=== PATIENT | female | born 1965 | race Hispanic/Latino ===

== ENCOUNTER 2018-06-09 02:33 | Inpatient (IN) | payer SELFPAY ==
[2018-06-09] MEDS ORDERED: Nitroglycerin 2% Ointment 1 INCH/1 GM Packet ONE (03:05)
[2018-06-09] MEDS ORDERED: Heparin 10,000 UNITS/ 10 ML VIAL SLOW IVP SCH (03:15)
[2018-06-09] MEDS ORDERED: Heparin 25,000 units/D5W 500 ML IV SCH (03:15)
[2018-06-09 03:32] LABS: INR-International Normal Ratio 1.1
[2018-06-09 03:34] LABS: PTT 78.6 SEC (22.9-36.1)
[2018-06-09 03:41] LABS: ALT (SGPT) 23 U/L (8-55); AST (SGOT) 12 U/L (5-34); Albumin 3.7 g/dL (3.5-5.0); Alkaline Phosphatase 135 U/L (40-150); Anion Gap 16 mmol/L (10-20); BUN (Urea Nitrogen) 13 mg/dL (7.0-18.7); Bilirubin, Total 0.5 mg/dL (0.2-1.2); CK (CPK) 77 U/L (29-168); Calc. Creatinine Clearance 0 mL/min (70-130); Calcium 9.2 mg/dL (7.8-10.44); Carbon Dioxide 19 mmol/L (22-29); Chloride 101 mmol/L (98-107); Estimated GFR-MDRD 75; Globulin 3.4 g/dL (2.4-3.5); Glucose 323 mg/dL (70-105); Magnesium 1.6 mg/dL (1.6-2.6); Potassium 3.5 mmol/L (3.5-5.1); Protein, Total 7.1 g/dL (6.0-8.3); Sodium 132 mmol/L (136-145)
[2018-06-09 03:42] LABS: #Basophils 0.1 thou/uL (0.0-0.2); #Eosinphils 0.3 thou/uL (0.0-0.7); #Lymphocytes 3.7 thou/uL (1.20-3.40); #Monocytes 0.4 thou/uL (0.11-0.59); #Neutrophils 6.2 thou/uL (1.40-6.50); %Eosinophils 3.1 % (0.0-10.0); %Lymphocytes 34.5 % (21.0-51.0); %Monocytes 3.7 % (0.0-10.0); %Neutrophils 57.7 % (42.0-75.0); Anisocytosis SLIGHT = 6-15 cells (100X) (0-5/hpf); MDiff Complete? YES; Mean Corpuscular HGB CONC 33.1 g/dL (32.0-36.0); Mean Corpuscular Hemoglobin 23.8 pg (27.0-31.0); Mean Platelet Volume 8.9 fL (7.4-10.4); Microcytosis SLIGHT = 6-15 cells (100X) (0-5/hpf); Platelet Count 362 thou/uL (130-400); Platelet Morphology Comment Appears Adequate; RBC Distribution Width 15.4 % (11.5-14.5); Red Blood Cell (RBC) Count 5.03 mill/uL (4.20-5.40); White Blood Cell (WBC) Count 10.8 thou/uL (4.8-10.8)
[2018-06-09] MEDS ORDERED: Ondansetron ODT 4 MG TAB PO PRN ×2 (04:07→04:08)
[2018-06-09] MEDS ORDERED: Nitroglycerin 50 MG/250 ML BOT 250 ML IVPB SCH (04:15)
[2018-06-09] MEDS ORDERED: Dextrose 50% Abboject 50 ML SYRINGE SLOW IVP PRN (04:27)
[2018-06-09] MEDS ORDERED: Dextrose 5% in Water 1,000 ML IV PRN (04:27)
--- NOTE | 2018-06-09 05:43 | HP ---
PRIMARY CARE DOCTOR: An out of town physician. CODE STATUS: Full code. TIME OF EVALUATION: 3:55 a.m. CHIEF COMPLAINT: Chest pain. HISTORY OF PRESENT ILLNESS: This is a 52-year-old female patient with past medical history of CABG one year and a half ago. The patient has also history of hypertension, came to the hospital after having chest pain. The chest pain started 90 minutes before arrival to the ER. No clear triggers, no alleviating factors. The patient was resting comfortable when the pain started. She reported that it is worsened when she walk and is associating with shortness of breath that is exertional. REVIEW OF SYSTEMS: CONSTITUTIONAL: The patient had no fever, chills, or generalized weakness. RESPIRATORY: No cough or sputum production. The patient has exertional shortness of breath. CARDIOVASCULAR: Chest pain. No palpitation as described in HPI. GASTROINTESTINAL: No nausea, vomiting, diarrhea, or abdominal pain. 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 GENITOURINARY: No burning on urination. EXTREMITIES: No leg swelling. All other systems were reviewed and negative except for the findings mentioned above. PAST MEDICAL HISTORY: Positive for hypertension, diabetes type 2, hyperlipidemia, cholesterol, obesity, and coronary artery disease. PAST SURGICAL HISTORY: x3, quadruple [place] [address] Ku. PSYCH HISTORY: No previous psych history. SOCIAL HISTORY: No drugs, no alcohol, no smoking history. KNOWN ALLERGIES: Phenergan. REPORTED MEDICATIONS: 1. Tylenol. 2. Aspirin. 3. Lipitor. 4. Celexa. 5. Nexium. 6. Ferrous sulfate. 7. Lasix. 8. Gabapentin. 9. Isosorbide mononitrate. 10. Metoprolol. 11. Janumet. 12. Tramadol. PHYSICAL EXAMINATION: VITAL SIGNS: On presentation, blood pressure 135/67 with , respiratory rate was 26, and oxygen saturation was 100 on room air. GENERAL APPEARANCE: The patient is alert, oriented, not in acute distress. HEENT: Eyes, normal conjunctivae. Moist oral mucosa. Anicteric. No JVD. RESPIRATORY: Bilateral air entry. No rales. No wheezing. Symmetric expansion. CARDIOVASCULAR: Normal rate. Regular rhythm. No murmurs. No gallops. No edema. ABDOMEN: Soft, normal bowel sounds. MUSCULOSKELETAL: Baseline range of motion and strength with no tenderness. SKIN: Warm and intact. No pallor. No rash. No redness. EXTREMITIES: Peripheral pulses are present. Capillary refill seems to be intact. NEURO: No evidence of any new focal weakness. Baseline speech. Cranial nerves seems to be intact. PSYCHIATRIC: The patient is in good mood. No anxiety. Oriented. Optimal judgment. DIAGNOSTIC STUDIES: The EKG was reviewed. The patient has normal sinus rhythm with a rate of 78 with left ventricular hypertrophy with repolarization abnormalities, cannot rule out septal infarct, age undetermined. WV 162, QT corrected 433. Chest x-ray was reviewed by myself. Radiology report is pending. The chest has cardiomegaly. No other significant cardiopulmonary findings were seen. we will need to review radiology report. Labs were reviewed. The patient has white count 10.8, hemoglobin 12, MCV 72, platelet count 362. Coagulation; PT 14, INR 7.1, PTT 78.6. Chemistry; sodium 132, potassium 3.5, chloride 101, carbon dioxide was 19, anion gap 16, BUN 13, creatinine 0.8, GFR 75, glucose 323, magnesium 1.6. LFTs were normal. Troponin was negative. ASSESSMENT AND PLAN: The patient will be placed in the hospital for following medical problems: 1. Chest pain, rule out acute coronary syndrome. The patient has a strong history of coronary artery disease, status post coronary artery bypass graft. The case has been discussed with Dr. Brewster by the ER physician. Recommendation to put the patient on heparin drip and also to put the patient on nitroglycerin drip. We will place the patient in ICU for that reason. We will monitor overnight. We will follow up troponins, most likely this is a case of unstable angina. 2. Uncontrolled diabetes. Glucose is 323, we will reconcile home medications, diabetic diet, sliding scale for optimal control. 3. Hyponatremia, sodium 132, this is mild, no need for any further intervention, we will monitor, we will treat accordingly. 4. Uncontrolled hypertension. The patient presented with a systolic blood pressure of 164, we will reconcile home medications, we will adjust treatment as needed. The patient to be on nitroglycerin drip. 5. Hyperlipidemia, low-cholesterol diet is advised, reconcile home medications. 6. Deep venous thromboses prophylaxis. More than 35 minutes was spent in bedside assessment, counseling to family and patient, review and evaluation of records. Job ID: [id number]
[2018-06-09] MEDS ORDERED: Heparin 25,000 units/D5W 500 ML ONE (06:04)
[2018-06-09] MEDS ORDERED: Acetaminophen 325 MG TAB ONE (06:22)
[2018-06-09 06:37] LABS: Troponin I 0.101 ng/mL (< 0.028)
[2018-06-09 07:33] VITALS: BMI 38.7
[2018-06-09] MEDS ORDERED: metFORMIN 500 MG TAB PO SCH (08:00)
[2018-06-09] MEDS ORDERED: Non-Formulary Item 1 EACH (Sitagliptin Phos/Metformin Hcl [Janumet] 1 TABLET) PO SCH (08:00)
--- NOTE | 2018-06-09 08:37 | RAD ---
PORTABLE CHEST: Date: 06/09/18 PROVIDED CLINICAL HISTORY: Chest pain. FINDINGS: Comparison with 10/31/17. Cardiac and mediastinal silhouette is within normal limits. Median sternotomy changes are again seen. No focal consolidation, pleural fluid, or pneumothorax apparent. IMPRESSION: No evidence for an acute cardiopulmonary process. POS: [facility]
[2018-06-09] MEDS: Alogliptin 25 MG TAB PO SCH ×2 (08:49→16:47)
[2018-06-09] MEDS: Metoprolol Tartrate 25 MG TAB PO SCH ×2 (08:50→20:47)
[2018-06-09] MEDS: Citalopram 20 MG TAB PO SCH (08:50)
[2018-06-09] MEDS: Furosemide 40 MG TAB PO SCH (08:50)
[2018-06-09] MEDS ORDERED: Aspirin 81 mg Enteric Coated Tablet PO SCH (09:00)
[2018-06-09] MEDS ORDERED: Non-Formulary Item 1 EACH (Levemir Flexpen [Levemir Flexpen] 20 UNIT) SC SCH (09:00)
[2018-06-09] MEDS ORDERED: Insulin Glargine 20 UNITS in Pre-Filled Syringe 1 EACH SC SCH (09:00)
[2018-06-09 09:53] LABS: Prothrombin Time 13.7 SEC (12.0-14.7)
[2018-06-09] MEDS ORDERED: ISOVUE-370 76%-LOCM 1 ML ONE (10:17)
--- NOTE | 2018-06-09 10:34 | CT ---
CT PULMONARY ANGIGRAM WITH IV CONTRAST AND 3D MIP RECONSTRUCTIONS: Date: 06/09/18 PROVIDED CLINICAL HISTORY: Chest pain and shortness of breath. FINDINGS: Comparison made with the examination dated 01/21/17. There is no evidence for central or segmental pulmonary embolus. There is moderate stenosis at the or igin of the left subclavian artery. The heart, pericardium, and great vessels appear otherwise unrema rkable, with the exception of vascular calcification. The lungs are free of significant opacity. Ther e is no pleural fluid or pneumothorax apparent. The airway appears patent and of normal caliber. The visualized portions of the upper abdomen demonstrate no significant abnormality. The osseous structur es demonstrate no concerning osteoblastic or osteolytic lesions. IMPRESSION: No evidence for central or segmental pulmonary embolus. POS: [facility]
[2018-06-09] MEDS: HumaLOG 300 UNITS/3 ML VIAL SC PRN ×2 (11:12→16:02)
--- NOTE | 2018-06-09 11:16 | CON ---
DATE OF CONSULTATION: 06/09/2018 HISTORY OF PRESENT ILLNESS: Ms. Camacho is a 52-year-old female. She had a coronary artery bypass grafting in 2017. She had chest discomfort last fall and underwent cardiac catheterization at [facility] in [place]. She tells me that all of her grafts were occluded. It is unclear what was recommended. She presented back with chest pain similar to past chest pain. She underwent a CT pulmonary angiogram today that was negative. She is pain free at this time. PAST MEDICAL HISTORY: Remarkable for hypertension, diabetes, lipid disorder, and coronary artery disease. FAMILY HISTORY: Negative for lung disease in early age. Family history is positive for diabetes. SOCIAL HISTORY: She is a nonsmoker and nondrinker. ALLERGIES: SHE REPORTS AN ALLERGY TO PHENERGAN. REVIEW OF SYSTEMS: Ten-point review of systems completed, otherwise negative. PHYSICAL EXAMINATION: GENERAL: Ms. Camacoh is a 52-year-old female. VITAL SIGNS: Blood pressure is 152/80, heart rate is 80, respiratory rate is 18 , and oximetry is 99% on room air. HEAD: Unremarkable. NECK: Unremarkable. LUNGS: Clear. HEART: Regular rhythm. S1 and S2 are normal. ABDOMEN: Soft and nontender. EXTREMITIES: Without clubbing, cyanosis, or edema. LABORATORY DATA: White count is 10.8, hemoglobin 12.0, and platelets 362. Sodium 132, potassium 3.5, chloride 101, bicarb 19, BUN 13, creatinine 0.81, and glucose 323. Troponins 0.1 at 6'o clock this morning. IMPRESSION: Unstable angina with occluded coronary grafts. PLAN: Cardiology input. Should stay in critical care unit for now. We think her heparin drip could be discontinued. She will be anticoagulated for several hours after the heparin has been discontinued. If Cardiology wants to continue with Lovenox, would be reasonable and antiplatelet therapy. I am not sure anything could be done. We filled out a medical records request for her cath report. TIME SPENT: This is a 70-minute consult, with greater than 50% of the time was spent coordinating care on the unit. Job ID: [id number] MTDD
--- NOTE | 2018-06-09 14:23 | PDOC.PN ---
- Subjective Encounter Start Date: 06/09/18 Encounter Start Time: 14:22 Subjective: feels better.no chest pain or SOB -: has been off of eliquis by pcp for years as the DVt was one episode -: no recent travels/immobilizations - Objective Resuscitation Status - Order Detail: 06/09/18 04:08 Resuscitation Status Routine Resuscitation Status: FULL: Full Resuscitation MAR Reviewed: Yes Vital Signs & Weight: Vital Signs (12 hours) Temp Pulse Resp BP Pulse Ox 06/09/18 12:00 98.0 F 100 06/09/18 07:36 100 06/09/18 03:03 97.7 F 79 17 132/80 100 Weight Weight 198 lb 3.129 oz Most Recent Monitor Data Heart Rate from ECG 69 NIBP 122/76 NIBP BP-Mean 91 Respiration from ECG 19 SpO2 100 I&O: 06/08/18 06/09/18 06/10/18 06:59 06:59 06:59 Intake Total 240 Output Total 901 Balance -661 Result Diagrams: 06/09/18 03:08 06/09/18 03:08 Additional Labs: Accuchecks 06/09/18 11:10 POC Glucose 284 H Laboratory Tests 06/09/18 06/09/18 03:08 06:03 Troponin I Less than 0.010 0.101 H Phys Exam - Physical Examination Constitutional: NAD weak looking HEENT: PERRLA, moist MMs, sclera anicteric, TM's clear, oral pharynx no lesions , 2+ tonsils Neck: no nodes, no JVD, supple, full ROM Respiratory: no wheezing, no rales, no rhonchi, clear to auscultation bilateral Cardiovascular: RRR, no significant murmur, no rub Gastrointestinal: soft, non-tender, no distention, positive bowel sounds Musculoskeletal: no edema Neurological: non-focal, normal sensation, moves all 4 limbs Dx/Plan (1) Unstable angina Status: Acute (2) CAD (coronary artery disease) Code(s): I25.10 - ATHSCL HEART DISEASE OF [place] CORONARY ARTERY W/O ANG PCTRS Status: Chronic Comment: s/p CABG, on ASA (3) DM2 (diabetes mellitus, type 2) Status: Chronic Qualifiers: Chronic kidney disease stage: stage 2 (mild) (4) Dyslipidemia Code(s): E78.5 - HYPERLIPIDEMIA, UNSPECIFIED Status: Chronic (5) HTN (hypertension) Code(s): I10 - ESSENTIAL (PRIMARY) HYPERTENSION Status: Chronic - Plan respiratory therapy, DVT proph w/SCDs CTA ordered given h/o PE & SOB w CP on presentation -: no PE -: cont heparin drip.Cardiology consulted -: aldair will need Cath.Hd stable. -: cont medical management * .not on cardene drip. * serial troponins Review of Systems - Review of Systems Constitutional: weakness, malaise. negative: fever, chills, sweats, other ENT: negative: Ear Pain, Ear Discharge, Nose Pain, Nose Discharge, Nose Congestion, Mouth Pain, Mouth Swelling, Throat Pain, Throat Swelling, Other Respiratory: negative: Cough, Dry, Shortness of Breath, Hemoptysis, SOB with Excertion, Pleuritic Pain, Sputum, Wheezing Cardiovascular: negative: chest pain, palpitations, orthopnea, paroxysmal nocturnal dyspnea, edema, light headedness, other Gastrointestinal: negative: Nausea, Vomiting, Abdominal Pain, Diarrhea, Constipation, Melena, Hematochezia, Other Genitourinary: negative: Dysuria, Frequency, Incontinence, Hematuria, Retention , Other Musculoskeletal: negative: Neck Pain, Shoulder Pain, Arm Pain, Back Pain, Hand Pain, Leg Pain, Foot Pain, Other Neurological: negative: Weakness, Numbness, Incoordination, Change in Speech, Confusion, Seizures, Other - Medications/Allergies Allergies/Adverse Reactions: Allergies Allergy/AdvReac Type Severity Reaction Status Date / Time promethazine [From Phenergan] Allergy Verified 01/21/17 03:45 Medications: Current Medications Acetaminophen (Tylenol) 650 mg PO Q4H PRN PRN Reason: Headache/Fever/Mild Pain (1-3) Alogliptin Benzoate (Alogliptin) 12.5 mg PO BID-[facility] Last Admin: 06/09/18 08:49 Dose: 12.5 mg Aspirin (Ecotrin) 81 mg PO DAILY [facility] Last Admin: 06/09/18 08:50 Dose: 81 mg Atorvastatin Calcium (Lipitor) 40 mg PO HS [facility] Citalopram Hydrobromide (Celexa) 20 mg PO DAILY [facility] Last Admin: 06/09/18 08:50 Dose: 20 mg Dextrose/Water (Dextrose 50%) 25 gm SLOW IVP PRN PRN PRN Reason: Hypoglycemia Furosemide (Lasix) 40 mg PO DAILY [facility] Last Admin: 06/09/18 08:50 Dose: 40 mg Gabapentin (Neurontin) 300 mg PO HS [facility] Glucagon (Glucagon) 1 mg IM PRN PRN PRN Reason: Hypoglycemia Nitroglycerin/Dextrose (Nitroglycerin 50 Mg/250 Ml Bot) 250 mls @ 0 mls/hr IVPB INF SAMMIE; Protocol Dextrose/Water (D5w) 1,000 mls @ 0 mls/hr IV .Q0M PRN PRN Reason: Hypoglycemia Insulin Human Lispro (Humalog) 0 units SC .MILD SLIDING SCALE PRN PRN Reason: Mild Correctional Scale Last Admin: 06/09/18 11:12 Dose: 4 unit Metoprolol Tartrate (Lopressor) 12.5 mg PO BID [facility] Last Admin: 06/09/18 08:50 Dose: 12.5 mg Ondansetron HCl (Zofran Odt) 4 mg PO Q4HR PRN PRN Reason: Nausea/Vomiting Ondansetron HCl (Zofran Odt) 4 mg PO Q6H PRN PRN Reason: Nausea/Vomiting Pantoprazole Sodium (Protonix) 40 mg PO BID [facility] Last Admin: 06/09/18 08:50 Dose: 40 mg Sodium Chloride (Flush - Normal Saline) 10 ml IVF Q12HR [facility] Last Admin: 06/09/18 08:51 Dose: 10 ml Sodium Chloride (Flush - Normal Saline) 10 ml IVF PRN PRN PRN Reason: Saline Flush
[2018-06-09] MEDS ORDERED: Temazepam 15 MG CAP PO PRN (19:55)
[2018-06-09] MEDS: Aspirin 81 mg Enteric Coated Tablet PO SCH (20:47)
[2018-06-09] MEDS ORDERED: Gabapentin 300 MG CAP PO SCH (21:00)
[2018-06-09] MEDS ORDERED: Atorvastatin Calcium 40 MG TAB PO SCH (21:00)
[2018-06-10 04:49] LABS: #Basophils 0.1 thou/uL (0.0-0.2); #Eosinphils 0.3 thou/uL (0.0-0.7); #Lymphocytes 2.4 thou/uL (1.20-3.40); #Monocytes 0.3 thou/uL (0.11-0.59); #Neutrophils 8.6 thou/uL (1.40-6.50); %Basophils 0.9 % (0.0-1.0); %Eosinophils 2.5 % (0.0-10.0); %Lymphocytes 20.2 % (21.0-51.0); %Monocytes 2.9 % (0.0-10.0); %Neutrophils 73.5 % (42.0-75.0); Hemoglobin 12.4 g/dL (12.0-16.0); Mean Corpuscular HGB CONC 32.5 g/dL (32.0-36.0); Mean Corpuscular Hemoglobin 23.6 pg (27.0-31.0); Mean Corpuscular Volume 72.6 fL (78.0-98.0); Mean Platelet Volume 8.7 fL (7.4-10.4); Platelet Count 395 thou/uL (130-400); RBC Distribution Width 15.6 % (11.5-14.5); Red Blood Cell (RBC) Count 5.25 mill/uL (4.20-5.40); White Blood Cell (WBC) Count 11.6 thou/uL (4.8-10.8)
[2018-06-10 05:09] LABS: Anion Gap 17 mmol/L (10-20); BUN (Urea Nitrogen) 14 mg/dL (7.0-18.7); Calc. Creatinine Clearance 119 mL/min (70-130); Calcium 9.1 mg/dL (7.8-10.44); Carbon Dioxide 20 mmol/L (22-29); Chloride 101 mmol/L (98-107); Estimated GFR-MDRD 76; Glucose 301 mg/dL (70-105); Potassium 3.7 mmol/L (3.5-5.1); Sodium 134 mmol/L (136-145)
[2018-06-10] MEDS: HumaLOG 300 UNITS/3 ML VIAL SC PRN (05:58)
[2018-06-10] MEDS ORDERED: Dextrose 5% in Water 1,000 ML IV PRN (07:46)
[2018-06-10] MEDS ORDERED: Dextrose 50% Abboject 50 ML SYRINGE SLOW IVP PRN (07:46)
[2018-06-10] MEDS ORDERED: HumaLOG 300 UNITS/3 ML VIAL SC PRN ×2 (07:46)
[2018-06-10] MEDS: Citalopram 20 MG TAB PO SCH (09:45)
[2018-06-10] MEDS: Metoprolol Tartrate 25 MG TAB PO SCH (09:45)
[2018-06-10] MEDS: Aspirin 81 mg Enteric Coated Tablet PO SCH (09:45)
[2018-06-10] MEDS: Furosemide 40 MG TAB PO SCH (09:45)
[2018-06-10] MEDS: Alogliptin 25 MG TAB PO SCH ×2 (09:46→17:17)
[2018-06-10] MEDS: Acetaminophen 325 MG TAB PO PRN ×2 (09:49→17:20)
--- NOTE | 2018-06-10 11:08 | PDOC.PN ---
- Subjective Encounter Start Date: 06/10/18 Encounter Start Time: 11:06 Subjective: feels better. eager to go home -: no more chest pain,no SOB - Objective Resuscitation Status - Order Detail: 06/09/18 04:08 Resuscitation Status Routine Resuscitation Status: FULL: Full Resuscitation MAR Reviewed: Yes Vital Signs & Weight: Vital Signs (12 hours) Temp Pulse Resp BP BP Pulse Ox 06/10/18 07:20 97.9 F 69 16 120/63 99 06/10/18 04:05 98 F 74 18 134/68 98 Weight Weight 195 lb 9.6 oz Most Recent Monitor Data Heart Rate from ECG 77 NIBP 135/81 NIBP BP-Mean 99 Respiration from ECG 14 SpO2 100 I&O: 06/09/18 06/10/18 06/11/18 06:59 06:59 06:59 Intake Total 1080 Output Total 1601 Balance -521 Result Diagrams: 06/10/18 04:35 06/10/18 04:35 Additional Labs: Accuchecks 06/10/18 06/09/18 06/09/18 05:45 20:38 15:57 POC Glucose 352 H 214 H 275 H 06/09/18 11:10 POC Glucose 284 H Laboratory Tests 06/09/18 06/09/18 03:08 06:03 Troponin I Less than 0.010 0.101 H Phys Exam - Physical Examination Constitutional: NAD HEENT: PERRLA, moist MMs, sclera anicteric, oral pharynx no lesions Neck: no nodes, no JVD, supple, full ROM Respiratory: no wheezing, no rales, no rhonchi, clear to auscultation bilateral Cardiovascular: RRR, no significant murmur, no rub Gastrointestinal: soft, non-tender, no distention, positive bowel sounds Musculoskeletal: no edema, pulses present Neurological: non-focal, normal sensation, moves all 4 limbs Psychiatric: normal affect, A&O x 3 Skin: no rash Dx/Plan (1) Unstable angina Status: Acute Comment: improved. Occluded grafts w only RCA graft patent per Cath in 04/07 (2) CAD (coronary artery disease) Code(s): I25.10 - ATHSCL HEART DISEASE OF [place] CORONARY ARTERY W/O ANG PCTRS Status: Chronic Comment: s/p CABG, on ASA (3) DM2 (diabetes mellitus, type 2) Status: Chronic Qualifiers: Chronic kidney disease stage: stage 2 (mild) (4) Dyslipidemia Code(s): E78.5 - HYPERLIPIDEMIA, UNSPECIFIED Status: Chronic (5) HTN (hypertension) Code(s): I10 - ESSENTIAL (PRIMARY) HYPERTENSION Status: Chronic - Plan out of bed/ambulate, DVT proph w/SCDs [facility].started on ranexa.ASA increased -: May DC home later today if cleared by cardiology -: will f/u w own side framer Dr. Juarez as an Outpt -: Hd stable.off of heparin drip * . Review of Systems - Review of Systems Constitutional: negative: fever, chills, sweats, weakness, malaise, other ENT: negative: Ear Pain, Ear Discharge, Nose Pain, Nose Discharge, Nose Congestion, Mouth Pain, Mouth Swelling, Throat Pain, Throat Swelling, Other Respiratory: negative: Cough, Dry, Shortness of Breath, Hemoptysis, SOB with Excertion, Pleuritic Pain, Sputum, Wheezing Cardiovascular: negative: chest pain, palpitations, orthopnea, paroxysmal nocturnal dyspnea, edema, light headedness, other Gastrointestinal: negative: Nausea, Vomiting, Abdominal Pain, Diarrhea, Constipation, Melena, Hematochezia, Other Genitourinary: negative: Dysuria, Frequency, Incontinence, Hematuria, Retention , Other Neurological: negative: Weakness, Numbness, Incoordination, Change in Speech, Confusion, Seizures, Other - Medications/Allergies Allergies/Adverse Reactions: Allergies Allergy/AdvReac Type Severity Reaction Status Date / Time promethazine [From Phenergan] Allergy Verified 01/21/17 03:45 Medications: Current Medications Acetaminophen (Tylenol) 650 mg PO Q4H PRN PRN Reason: Headache/Fever/Mild Pain (1-3) Last Admin: 06/10/18 09:49 Dose: 650 mg Alogliptin Benzoate (Alogliptin) 12.5 mg PO BID-[facility] Last Admin: 06/10/18 09:46 Dose: 12.5 mg Aspirin (Ecotrin) 81 mg PO BID [facility] Last Admin: 06/10/18 09:45 Dose: 81 mg Atorvastatin Calcium (Lipitor) 40 mg PO [facility] Last Admin: 06/09/18 20:47 Dose: 40 mg Citalopram Hydrobromide (Celexa) 20 mg PO DAILY [facility] Last Admin: 06/10/18 09:45 Dose: 20 mg Dextrose/Water (Dextrose 50%) 25 gm SLOW IVP PRN PRN PRN Reason: Hypoglycemia Furosemide (Lasix) 40 mg PO DAILY [facility] Last Admin: 06/10/18 09:45 Dose: 40 mg Gabapentin (Neurontin) 300 mg PO HS [facility] Last Admin: 06/09/18 20:47 Dose: 300 mg Glucagon (Glucagon) 1 mg IM PRN PRN PRN Reason: Hypoglycemia Dextrose/Water (D5w) 1,000 mls @ 0 mls/hr IV .Q0M PRN PRN Reason: Hypoglycemia Insulin Human Lispro (Humalog) 0 units SC .AGGRESSIVE SLIDING PRN PRN Reason: Aggressive Correctional Scale Insulin Human Lispro (Humalog) 0 units SC .BEDTIME SLIDING SC PRN PRN Reason: Bedtime Correctional Scale Metoprolol Tartrate (Lopressor) 12.5 mg PO BID [facility] Last Admin: 06/10/18 09:45 Dose: 12.5 mg Ondansetron HCl (Zofran Odt) 4 mg PO Q4HR PRN PRN Reason: Nausea/Vomiting Ondansetron HCl (Zofran Odt) 4 mg PO Q6H PRN PRN Reason: Nausea/Vomiting Pantoprazole Sodium (Protonix) 40 mg PO BID [facility] Last Admin: 06/10/18 09:45 Dose: 40 mg Ranolazine (Ranexa) 500 mg PO BID [facility] Last Admin: 06/10/18 09:45 Dose: 500 mg Sodium Chloride (Flush - Normal Saline) 10 ml IVF Q12HR [facility] Last Admin: 06/10/18 09:44 Dose: 10 ml Sodium Chloride (Flush - Normal Saline) 10 ml IVF PRN PRN PRN Reason: Saline Flush Temazepam (Restoril) 15 mg PO HSPRN PRN PRN Reason: Insomnia
[2018-06-10] MEDS ORDERED: Clopidogrel Bisulfate 300 MG TAB PO SCH (17:15)
[2018-06-10 17:50] VITALS: BP 116/64; TEMP 98.5
--- NOTE | 2018-06-11 05:32 | DIS ---
DATE OF ADMISSION: 06/09/2018 DATE OF DISCHARGE: 06/10/2018 CONDITION: At the time of discharge, stable and improved. DISCHARGE DIAGNOSES: 1. Unstable angina. 2. History of coronary artery disease, status post coronary artery bypass graft with occluded coronary artery bypass graft except RCA graft. 3. Diabetes mellitus type 2. 4. Dyslipidemia. 5. Hypertension. PRIMARY CARE PHYSICIAN: [facility]. PRIMARY METAL OFF BEARER: Dr. Syed Juarez at [facility]. IN-HOUSE CONSULTATION: 1. Pulmonary Medicine, Dr. Oliveira. 2. Cardiology, Dr. Mondragon. DISCHARGE MEDICATIONS: New medications: 1. Ranexa 500 mg p.o. b.i.d. 2. Sublingual nitroglycerin spray q.5 minutes as needed for chest pain. 3. Plavix 75 mg daily. Resume home medications as follows: 1. Lipitor 40 mg daily. 2. Celexa 20 mg daily. 3. Nexium 40 p.o. b.i.d. 4. Lasix 40 daily. 5. Gabapentin 300 daily. 6. Levemir 20 b.i.d. 7. Metoprolol tartrate 12.5 b.i.d. 8. Zofran p.r.n. 9. Janumet one tablet p.o. b.i.d. 10. Aspirin 81 mg p.o. b.i.d. PROCEDURES DONE IN THE HOSPITAL: CT angio of the thorax which is negative for any evidence of pulmonary embolism. HISTORY OF PRESENTING ILLNESS: Ms. Camacho is a 52-year-old female with known history of coronary artery disease, who recently had undergone a cardiac catheterization at [facility] by Dr. Juarez revealing inoperable graft occlusion. At that time, medical management was advised. She came to the emergency room with complaints of chest pain on exertion and was diagnosed with unstable angina and was admitted for further workup. Her cardiac enzymes upon presentation were unremarkable and they remained in the indeterminate range throughout the hospitalization. HOSPITAL COURSE: She was initially started on heparin drip because of possibility of angina and needing cardiac catheterization. She was admitted to [facility]. She was transitioned quickly out of there and heparin drip was stopped. Cardiology saw the patient and agreed with medical optimization. She was started on Ranexa. She was given a loading dose of Plavix and was started on Plavix as well. She was also given nitroglycerin spray. She remained otherwise asymptomatic and hemodynamically stable throughout the rest of her hospitalization. This morning, she was seen and examined and she has been cleared for discharge by Cardiology to follow up with her own legal researcher, Dr. Syed Juarez, in the outpatient setting. Once again, she has known blockages in the graft which are deemed inoperable. She was seen and examined prior to discharge. Please see hospitalist progress note from today's date for further details, including [id number] interaction. TIME SPENT: Total time spent in the discharge of this patient 32 minutes. Job ID: [id number]
--- NOTE | 2018-06-11 08:34 | CON ---
DATE OF CONSULTATION: HISTORY OF PRESENT ILLNESS: The patient is an unfortunate 52-year-old woman, who presents with recurrent chest discomfort. The patient has a long history of coronary artery disease. She was initially followed by Dr. Uribe. She was found to have severe three-vessel coronary artery disease and underwent coronary bypass graft surgery x3. The patient has had recurrent difficulties with chest discomfort. She has been followed primarily at [facility]. The patient also has been diagnosed with a pulmonary embolus. The patient had underwent a repeat catheterization approximately a month ago. She states that she had several occluded coronary bypass grafts. The patient has been treated with Ranexa. The patient states she has missed several of her cardiac medications. She presented once again to the emergency room with chest discomfort. PAST MEDICAL HISTORY: Significant for; 1. Coronary artery disease. 2. Hypertension. 3. Dyslipidemia. 4. History of pulmonary embolus. PAST SURGICAL HISTORY: SOCIAL HISTORY: Nonsmoker. ALLERGIES: PROMETHAZINE. PHYSICAL EXAMINATION: GENERAL: Obese woman, in no acute distress. VITAL SIGNS: Blood pressure 135/81. NECK: No jugular venous distention. LUNGS: Clear to auscultation. HEART: Regular rate and rhythm. Normal S1 and S2 ABDOMEN: Distended. EXTREMITIES: Showed mild edema. LABORATORY RESULTS: Sodium 132, potassium 3.5, chloride 101, bicarb 19, BUN 13, creatinine 0.8, glucose 323. Troponin 0.01. White blood cell count 10.8, hemoglobin 12.0, hematocrit 36.3, platelets 362. EKG revealed normal sinus rhythm with left ventricular hypertrophy, ST abnormality suggestive of repolarization abnormality. IMPRESSION: 1. Recurrent unstable angina. 2. History of coronary artery bypass surgery. 3. Hypertension. 4. History of pulmonary embolism. 5. Dyslipidemia. 6. Diabetes mellitus. 7. Noncompliance. PLAN: This patient presents with recurrent chest discomfort. Her cardiac enzymes reveal no evidence of myocardial infarction. She had a recent cardiac catheterization. We will obtain records from [facility] from a cardiac standpoint. We will treat the patient medically. I have explained the life threatening consequences of her not being compliant with her medications. We will restart the patient on Ranexa. We will follow this patient with you through her hospitalization. Consult Dr. Oliveira and Dr. Ramirez. Critical care time 30 minutes. Job ID: [id number]
== END 2018-06-10 19:43 | disposition home or self-care (01) | DRG 303 ==
LOC: ERS 02:33 → ERHOLD 03:00 → CCU 07:51 → 2NO 18:50
PROVIDERS: ADMIT Hospitalist; ATTEND Hospitalist
DX: I25.110 Atherosclerotic heart disease of native coronary artery with unstable angina pectoris (principal); T82.897A Other specified complication of cardiac prosthetic devices, implants and grafts, initial encounter; E87.1 Hypo-osmolality and hyponatremia; E11.22 Type 2 diabetes mellitus with diabetic chronic kidney disease; I12.9 Hypertensive chronic kidney disease with stage 1 through stage 4 chronic kidney disease, or unspecified chronic kidney disease; N18.2 Chronic kidney disease, stage 2 (mild); E78.5 Hyperlipidemia, unspecified; E66.9 Obesity, unspecified; Z95.1 Presence of aortocoronary bypass graft; Z86.711 Personal history of pulmonary embolism; Z91.19 Patient's noncompliance with other medical treatment and regimen; Z68.38 Body mass index [BMI] 38.0-38.9, adult
CPT/HCPCS: 36415; 36416; 71045; 71275; 80048; 80053; 82550; 83735; 84484; 85025; 85610; 85730; 93005; J1644

== ENCOUNTER 2018-11-03 03:19 | Observation (INO) | payer SELFPAY ==
[2018-11-03 04:04] LABS: #Basophils 0.1 thou/uL (0.0-0.2); #Eosinphils 0.2 thou/uL (0.0-0.7); #Lymphocytes 2.5 thou/uL (1.20-3.40); #Monocytes 0.4 thou/uL (0.11-0.59); #Neutrophils 8.1 thou/uL (1.40-6.50); %Basophils 1.3 % (0.0-1.0); %Eosinophils 1.9 % (0.0-10.0); %Monocytes 3.8 % (0.0-10.0); ALT (SGPT) 19 U/L (8-55); AST (SGOT) 10 U/L (5-34); Albumin 3.8 g/dL (3.5-5.0); Alkaline Phosphatase 119 U/L (40-150); Anion Gap 17 mmol/L (10-20); BUN (Urea Nitrogen) 11 mg/dL (7.0-18.7); Bilirubin, Total 0.4 mg/dL (0.2-1.2); Calc. Creatinine Clearance 0 mL/min (70-130); Calcium 9.2 mg/dL (7.8-10.44); Carbon Dioxide 21 mmol/L (22-29); Chloride 100 mmol/L (98-107); Estimated GFR-MDRD 72; Globulin 3.6 g/dL (2.4-3.5); Glucose 339 mg/dL (70-105); Hemoglobin 9.8 g/dL (12.0-16.0); Hypochromia SLIGHT = 6-15 cells (100X) (0-5/hpf); MDiff Complete? YES; Mean Corpuscular HGB CONC 32.7 g/dL (32.0-36.0); Mean Corpuscular Hemoglobin 21.1 pg (27.0-31.0); Mean Corpuscular Volume 64.6 fL (78.0-98.0); Mean Platelet Volume 9.1 fL (7.4-10.4); Microcytosis SLIGHT = 6-15 cells (100X) (0-5/hpf); Platelet Count 445 thou/uL (130-400); Potassium 3.6 mmol/L (3.5-5.1); Protein, Total 7.4 g/dL (6.0-8.3); RBC Distribution Width 16.8 % (11.5-14.5); Red Blood Cell (RBC) Count 4.62 mill/uL (4.20-5.40); Reflex for Review?? YES; Sodium 134 mmol/L (136-145); White Blood Cell (WBC) Count 11.4 thou/uL (4.8-10.8)
[2018-11-03] MEDS ORDERED: Morphine 4 MG/ML VIAL ONE (04:27)
[2018-11-03] MEDS ORDERED: Ondansetron PF 4 MG/2 ML Vial ONE (04:33)
[2018-11-03 05:06] LABS: Magnesium 1.6 mg/dL (1.6-2.6)
[2018-11-03] MEDS ORDERED: Aspirin Chewable 81 MG TAB ONE (05:32)
[2018-11-03 06:46] VITALS: BMI 40.5
--- NOTE | 2018-11-03 07:32 | CT ---
ABDOMEN AND PELVIS CT WITH CONTRAST: CLINICAL INDICATION: Abdominal pain. COMPARISON: No prior comparison. FINDINGS: There is reticulonodular opacification of the imaged right lung base and scattered ground-glass opaci ties of each lung base are also present. Evidence of prior cholecystectomy. No peripancreatic infla mmation, or focal hepatic or splenic lesion. No hydronephrosis of either kidney. Adrenal glands are unremarkable. The bowel is incompletely evaluated without enteric contrast. The unopacified urinar y bladder is grossly unremarkable. There is scattered vascular disease. Colonic diverticulosis is p resent. There are osseous degenerative changes. IMPRESSION: 1. Abnormalities of the lung bases, including ground-glass opacities and reticulonodular densities, notably at the imaged right lung base. Given multifocal nodularity, and the distribution, this may r elate to an atypical infection, although is not reliably evaluated on the basis of this exam as it is incidentally visualized. Dedicated CT thorax as followup is necessary to confirm resolution of nodu lar opacities. 2. No definitive evidence for an acute intraabdominal process. 3. Colonic diverticulosis. The bowel is incompletely evaluated without enteric contrast administrat ion. POS: [facility]
--- NOTE | 2018-11-03 08:09 | RAD ---
SINGLE VIEW CHEST: HISTORY: Chest pain. COMPARISON: 10/09/2018 FINDINGS: A single view of the chest shows a normal sized cardiomediastinal silhouette. The patient is status post sternotomy. There is no evidence of consolidation, mass, or pleural effusion. IMPRESSION: No evidence of acute cardiopulmonary disease. POS: [facility]
[2018-11-03 08:18] LABS: Iron 27 ug/dL (50-170); Iron Binding Capacity, Total 463 mcg/dL (265-497)
[2018-11-03 08:22] LABS: Troponin I Less than 0.010 ng/mL (< 0.028)
[2018-11-03 08:56] LABS: Folate (Folic Acid) 9.2 ng/mL (7.0-31.4)
[2018-11-03] MEDS ORDERED: Dextrose 5% in Water 1,000 ML IV PRN (09:39)
[2018-11-03] MEDS ORDERED: HumaLOG 300 UNITS/3 ML VIAL SC PRN (09:39)
[2018-11-03] MEDS ORDERED: Dextrose 50% Abboject 50 ML SYRINGE SLOW IVP PRN (09:39)
[2018-11-03] MEDS ORDERED: Morphine 2 MG/ML SYRINGE SLOW IVP PRN (09:56)
[2018-11-03] MEDS ORDERED: Insulin Glargine 30 UNITS in Pre-Filled Syringe 1 EACH SC SCH ×2 (10:00→21:00)
[2018-11-03] MEDS ORDERED: Ferrous Sulfate 325 MG TAB PO SCH ×2 (10:45→17:00)
[2018-11-03 11:30] LABS: Troponin I 0.014 ng/mL (< 0.028)
[2018-11-03] MEDS ORDERED: Ondansetron ODT 4 MG TAB PO PRN (11:34)
[2018-11-03] MEDS ORDERED: Acetaminophen 650 MG Suppository PR PRN (11:34)
[2018-11-03] MEDS ORDERED: Ondansetron PF 4 MG/2 ML Vial IVP PRN (11:34)
[2018-11-03] MEDS ORDERED: Acetaminophen 325 MG TAB PO PRN (11:34)
--- NOTE | 2018-11-03 13:26 | CT ---
CT OF THE CHEST WITHOUT CONTRAST: COMPARISON: CT abdomen/pelvis 11/03/2018. HISTORY: Abnormality seen in the lung bases on prior CT. History of chest pain. TECHNIQUE: Multiple contiguous axial images were obtained in a CT of the chest without contrast. Coronal reform ats were performed. FINDINGS: Multifocal airspace opacities are seen in the right lower lobe. These demonstrate a tree-in-bud kenna rupal in scattered areas and are most likely secondary to an acute infectious process. The left lung i s unremarkable. No abnormality is seen in the right middle lobe or right upper lobe. No pleural eff usion is seen. The heart is normal in size without focal cardiac abnormality. No hilar or mediastinal lymphadenopat hy are seen. Atherosclerotic calcifications are seen in the aorta. There is a calcified granuloma in the right lower lobe. No other pulmonary nodules are seen. Please see dedicated abdominal CT for findings below the diaphragm. The chest wall soft tissues are unremarkable. IMPRESSION: Right lower lobe pneumonia. POS: [facility]
--- NOTE | 2018-11-03 13:48 | HP ---
PRIMARY CARE PHYSICIAN: [facility]. CHIEF COMPLAINT: Chest pain. HISTORY OF PRESENT ILLNESS: Ms. Camacho is a very pleasant 52-year-old woman who has a known history of coronary artery disease, status post CABG x3 [place] [address] Mondragon. The patient has presented due to chest pain that started around 10:30 p.m. last night while she is lying in bed. She describes it as a pressure, rating it a 4/10 in severity, which she decided to alleviate by taking the shower. The patient states the pain subsided in less than 30 minutes, though she is unsure how long exactly it lasted. It was gone by the time she went back to bed, and she was woken suddenly at 2 a.m. in the morning with severe chest pain which she rates a 9/10 in severity. She did not take anything for this and attempted to reach her daughters as she was taking care of her grandchildren for sleeping. Eventually, she did call for an ambulance. She states the pain persisted and improved only slightly with nitroglycerin given by EMS. Upon arrival to the emergency department, the pain started to ease. She has had no recurrent pain since then. Denies having any associated shortness of breath. She does report having mild nausea. The patient denies any associated diaphoresis. The pain was nonradiating. She was previously following with Dr. Syed Juarez, pharmacy assistant from [facility], however, due to loss of insurance she has had and does not plan to have any further followup. The patient is however being compliant with her medications, and her children are helping her to purchase her medications. She denies skipping any doses and states she has been taking them as prescribed. The patient was last admitted here in May 2018 with chest pain and evaluated by Dr. Mondragon. Records were obtained at that time from [facility] and per Dr. Mondragon, she had undergone catheterization in April 2018, noted to have several occluded coronary bypass grafts and treated with Ranexa. She was also started on Plavix. The patient had been discharged with plans to follow up with Dr. Syed Juarez. Her graft blockages were deemed inoperable. REVIEW OF SYSTEMS: The patient states she has been struggling with increasing shortness of breath for the last month and a half. She was previously able to go down the steps and to the sidewalk, but more recently she is unable to do much activity at all without becoming very short of breath. This has been a very limiting and therefore frustrating for her. She denies having any cough or hemoptysis. She does have a history of pulmonary embolus. CT angiogram which was done during her admission in May showed no evidence of PE. The patient denies having any recent cough or hemoptysis. No fevers, chills, or sweats. She reports having a good appetite. She complains of abdominal discomfort to the left upper quadrant and right upper quadrant regions again for the last month. She has not sought medical attention for this. She states the discomfort is constant and worse with palpation. She at times feels it is worsened when she sits upright. She denies having any changes with her stools such as diarrhea, constipation, melena, or bright red blood in stools. Denies having any thin stools. Has never undergone a colonoscopy. She complains of any urinary symptoms. The patient states she has been struggling with heavy menses for the last 6 months. She states it lasts anywhere from 5 to 7 days and usually for the first 4 days, it is extremely heavy, causing her to use a tampon and sanitary napkin, both of which have to be changed within 20 minutes. She becomes very weak and short of breath during this time. The patient again has not undergone any evaluation for this and has never talked to her primary care doctor. She denies having any bleeding at present and denies having any severe pain associated with her heavy menses. All other review of systems are negative. PAST MEDICAL HISTORY: 1. Coronary artery disease. 2. Hypertension. 3. Dyslipidemia. 4. History of PE. 5. Heavy menses. 6. Obese. 7. Dyslipidemia. 8. Diabetes mellitus. 9. Recurrent unstable angina. PAST SURGICAL HISTORY: 1. CABG x3. 2. Laparoscopic cholecystectomy. 3. x3. SOCIAL HISTORY: The patient lives at home. She previously smoked, but quit 7 years ago. Denies any alcohol use or illicit drug use. ALLERGIES: PHENERGAN. CURRENT MEDICATIONS: 1. Aspirin. 2. Nexium. 3. Lasix. 4. Gabapentin. 5. Imdur. 6. Metoprolol. 7. Tramadol. 8. Citalopram. 9. Ondansetron. 10. Nitroglycerin. 11. Ranexa. 12. Clopidogrel. PHYSICAL EXAMINATION: GENERAL: The patient appears obese, well developed, and in no acute distress, resting comfortably in bed. VITAL SIGNS: Temperature 98.4, pulse 72, respirations 20, O2 saturation 95% on room air, and blood pressure 145/62. HEENT: Normocephalic and atraumatic. Pupils are equal, round, and reactive to light. Sclerae icterus. Oropharynx is clear. NECK: Supple without lymphadenopathy. LUNGS: Clear to auscultation bilaterally without wheezes, rales, or rhonchi. CARDIAC: Regular rate and rhythm. ABDOMEN: Soft, obese. Tenderness to the left upper quadrant with light palpation and tenderness to the right upper quadrant with light palpation. No guarding or rigidity. No epigastric tenderness. No suprapubic discomfort with palpation. EXTREMITIES: No lower leg swelling or edema. NEUROLOGIC: Alert and oriented x3. SKIN: Without rash or jaundice. LABORATORY DATA: White blood count 11.4, hemoglobin 9.8, hematocrit 29.8, and platelets 445. Sodium 134, potassium 3.6, BUN 11, creatinine 0.84, GFR 72, glucose 339, calcium 9.2, magnesium 1.6, total bilirubin 0.4, AST 10, ALT 19, alkaline phosphatase 119. Troponin-I negative x2. BNP 127.7. Albumin 3.8. Lipase 28. IMAGING DATA: 1. Chest x-ray, on 11/03/2018. No evidence of acute cardiopulmonary disease. Normal size cardiomediastinal silhouette. No consolidation, mass, or pleural effusion. 2. CT of the abdomen and pelvis, on 11/03/2018. Abnormalities of the lung bases, including ground-glass opacities and reticulonodular densities, notably at the imaged right lung base. Given multifocal nodularity in distribution, may relate to atypical infection. Dedicated CT chest would be needed to confirm residual nodular opacities. No evidence for acute intraabdominal process. She was noted to have colonic diverticulosis. Bowel was completely evaluated without enteric contrast administration. IMPRESSION AND PLAN: Ms. Camacho is a very pleasant 52-year-old woman with a long history of coronary artery disease, being admitted for management of the following; 1. Recurrent atypical chest pain. The patient had a catheterization done in April 2018, and per Dr. Mondragon' assessment in May when she presented with similar symptoms, was felt to be inoperable based on the catheterization findings of occlusion of her grafts. Given the fact that she is inoperable, she was advised to continue with medical management and avoid skipping any medications due to it being potentially life-threatening. The patient states she has been compliant with her medications since then despite not having any medical insurance. Her family is helping to purchase her medications. The patient, however, has been lost to follow up with Dr. Juarez, pharmacy assistant, at [facility]. She states she is not able to afford going for followup as she is not working and has no insurance. Given the fact that no intervention would likely take place, we have held on consulting Cardiology. We are trending her troponins and so far the first and second troponin are negative. We will follow up on results of her third troponin. She remained pain-free since admission. 2. Left upper quadrant and right upper quadrant pain. CT abdomen and pelvis was unremarkable for any intraabdominal process that might explain her pain. She was noted to have nodular opacities in the bilateral bases. CT chest was suggested for further assessment. Potentially, her pain could be preferably from bilateral lung processes. We will discuss with Dr. Snider if CT chest should be done as inpatient versus outpatient. She states it has been going on for the last month and a half. We have requested a repeat echo since last one was done in January 2017; at which time, she did have an ejection fraction of 60% to 65%. 3. Shortness of breath. The patient has been increasingly short of breath for the last month and a half. She does have underlying coronary artery disease, however, noted to be anemic. We have checked the iron studies which are notable for low iron level and ferritin is on the lower side as well. We have started ferrous sulfate 325 mg p.o. twice daily. The patient does have a history of heavy menses, which has not been worked up. This has been going on for the last 6 months. We have requested a complete pelvic ultrasound to assess for the presence of fibroids. If negative, we will likely begin Provera 10 mg p.o. b.i.d. per discussion with [facility] as a reasonable choice for management of having menstrual bleeding. This is given her at a very small risk of deep venous thrombosis, and the patient is already known to have a history of pulmonary embolism in the past. 4. Diabetes mellitus. Resume home medications. Initiate insulin sliding scale. Monitor blood glucose. 5. Hypertension. Resume home medications and monitor blood pressure. 6. Gastrointestinal prophylaxis. 7. Deep venous thrombosis prophylaxis with mechanical SCDs and enoxaparin 40 mg subcu daily. 8. Full code status. The patient's surrogate decision maker is her daughter, La Nena Mcdermott. The patient was seen and discussed with Dr. Snider, who agrees with plan of care as described above. Job ID: [id number]
[2018-11-03] MEDS ORDERED: Cefdinir 300 MG CAP PO SCH ×2 (14:30→21:00)
--- NOTE | 2018-11-03 14:37 | ULT ---
PELVIC ULTRASOUND: COMPARISON: CT abdomen/pelvis 11/03/2018. HISTORY: Heavy menses with pain. TECHNIQUE: Multiplanar, turner scale, and color Doppler images were obtained in a transabdominal and transvaginal pelvic ultrasound. Spectral analysis of the Doppler waveforms of the visualized ovaries was performe d. FINDINGS: The uterus has a 1.2 cm mass-like region along the posterior myometrium which could represent a small thyroid. No other abnormality is seen. The endometrial stripe is thickened measuring 1.2 cm. The right ovary cannot be visualized. The left ovary is normal in size and demonstrates normal inter nal flow. A dominant follicle is seen in the left ovary measuring 2.0 cm in size. No free fluid in the pelvis, abdomen, or celiac. IMPRESSION: Possible small uterine fibroid. POS: [facility]
[2018-11-03] MEDS ORDERED: Gabapentin 300 MG CAP PO SCH (15:00)
[2018-11-03 15:59] VITALS: BP 126/60; TEMP 98
[2018-11-03] MEDS ORDERED: Alogliptin 6.25 MG TAB PO SCH (17:00)
[2018-11-03] MEDS ORDERED: metFORMIN 500 MG TAB PO SCH (17:00)
[2018-11-03] MEDS ORDERED: Non-Formulary Item 1 EACH (Sitagliptin Phos/Metformin Hcl [Janumet] 1 TABLET) PO SCH (17:00)
--- NOTE | 2018-11-03 17:26 | ULT ---
EXAM: Left lower extremity venous duplex: Deep veins evaluated with color Doppler, spectral analysis, and compression. INDICATIONS: Left lower extremity pain and edema. FINDINGS: Deep veins interrogated include common femoral vein, femoral vein, popliteal vein, and post erior tibial vein. These veins show normal compression and blood flow. No evidence of DVT. IMPRESSION: Negative Left venous duplex exam.
[2018-11-03] MEDS ORDERED: Famotidine/PF 20 mg/2ml Vial SLOW IVP SCH (21:00)
[2018-11-03] MEDS ORDERED: Non-Formulary Item 1 EACH (Levemir Flexpen [Levemir Flexpen] 30 UNIT) SC SCH (21:00)
[2018-11-03] MEDS ORDERED: Metoprolol Tartrate 25 MG TAB PO SCH (21:00)
[2018-11-03] MEDS ORDERED: Aspirin 81 mg Enteric Coated Tablet PO SCH (21:00)
[2018-11-04] MEDS ORDERED: Enoxaparin Sodium 40 MG/0.4 ML SYRINGE SC SCH (09:00)
[2018-11-04] MEDS ORDERED: Furosemide 40 MG TAB PO SCH (09:00)
[2018-11-04] MEDS ORDERED: Clopidogrel Bisulfate 75 MG TAB PO SCH (09:00)
[2018-11-04] MEDS ORDERED: Non-Formulary Item 1 EACH (Esomeprazole Magnesium [Nexium] 40 MG) PO SCH (09:00)
[2018-11-04] MEDS ORDERED: Citalopram 20 MG TAB PO SCH (09:00)
== END 2018-11-03 18:53 | disposition home or self-care (01) ==
LOC: ERS 03:19 → 2SW 06:40
PROVIDERS: ADMIT Family Medicine; ATTEND Family Medicine
DX: R07.89 Other chest pain (principal); J18.9 Pneumonia, unspecified organism; K57.30 Diverticulosis of large intestine without perforation or abscess without bleeding; I11.0 Hypertensive heart disease with heart failure; I50.9 Heart failure, unspecified; E11.9 Type 2 diabetes mellitus without complications; I25.110 Atherosclerotic heart disease of native coronary artery with unstable angina pectoris; E78.5 Hyperlipidemia, unspecified; E66.9 Obesity, unspecified; Z86.711 Personal history of pulmonary embolism; Z95.1 Presence of aortocoronary bypass graft; Z90.49 Acquired absence of other specified parts of digestive tract; Z87.891 Personal history of nicotine dependence; Z68.41 Body mass index [BMI] 40.0-44.9, adult; Z88.8 Allergy status to other drugs, medicaments and biological substances; Z79.82 Long term (current) use of aspirin; Z79.84 Long term (current) use of oral hypoglycemic drugs; Z79.899 Other long term (current) drug therapy
CPT/HCPCS: 36415; 36416; 71045; 71250; 74177; 76856; 80053; 82607; 82728; 82746; 83540; 83550; 83690; 83735; 83880; 84484; 85025; 85060; 93005; 93306; 94760; 96374; 96375; G0378; J1825; J2270; J2405

== ENCOUNTER 2018-12-02 20:38 | Observation (INO) | payer SELFPAY ==
[2018-12-02 21:38] LABS: ALT (SGPT) 31 U/L (8-55); AST (SGOT) 18 U/L (5-34); Albumin 4.2 g/dL (3.5-5.0); Alkaline Phosphatase 131 U/L (40-150); Anion Gap 17 mmol/L (10-20); BUN (Urea Nitrogen) 9 mg/dL (9.8-20.1); Bilirubin, Total 0.3 mg/dL (0.2-1.2); CK (CPK) 80 U/L (29-168); Calc. Creatinine Clearance 0 mL/min (70-130); Calcium 9.9 mg/dL (7.8-10.44); Carbon Dioxide 22 mmol/L (22-29); Chloride 98 mmol/L (98-107); Estimated GFR-MDRD 85; Globulin 3.4 g/dL (2.4-3.5); Glucose 438 mg/dL (70-105); Lipase 36 U/L (8-78); Protein, Total 7.6 g/dL (6.0-8.3); Sodium 133 mmol/L (136-145)
[2018-12-02 21:42] LABS: #Basophils 0.1 thou/uL (0.0-0.2); #Eosinphils 0.2 thou/uL (0.0-0.7); #Lymphocytes 2.7 thou/uL (1.20-3.40); #Monocytes 0.4 thou/uL (0.11-0.59); #Neutrophils 7.5 thou/uL (1.40-6.50); %Basophils 0.8 % (0.0-1.0); %Eosinophils 1.6 % (0.0-10.0); %Lymphocytes 24.9 % (21.0-51.0); %Monocytes 3.9 % (0.0-10.0); %Neutrophils 68.8 % (42.0-75.0); CKMB 1.4 ng/mL (0-6.6); Hemoglobin 10.6 g/dL (12.0-16.0); Hypochromia SLIGHT = 6-15 cells (100X) (0-5/hpf); MDiff Complete? YES; Mean Corpuscular Hemoglobin 19.5 pg (27.0-31.0); Mean Platelet Volume 11.3 fL (7.4-10.4); Microcytosis SLIGHT = 6-15 cells (100X) (0-5/hpf); Platelet Count 401 thou/uL (130-400); Platelet Morphology Comment Appears Adequate; RBC Distribution Width 16.9 % (11.5-14.5); Red Blood Cell (RBC) Count 5.41 mill/uL (4.20-5.40); Reflex for Review?? YES; White Blood Cell (WBC) Count 10.9 thou/uL (4.8-10.8)
[2018-12-02] MEDS ORDERED: Aspirin Chewable 81 MG TAB ONE (21:42)
--- NOTE | 2018-12-02 21:49 | RAD ---
EXAM: Portable chest PROVIDED CLINICAL HISTORY: Chest pain COMPARISON: 10/09/2006 FINDINGS: Cardiac and mediastinal silhouette is within normal limits. No focal consolidation, pleural fluid or pneumothorax evident. Median sternotomy changes are now seen. IMPRESSION: No evidence for an acute cardiopulmonary process.
[2018-12-02] MEDS ORDERED: Insulin Regular 300 UNITS/3 ML VIAL ONE (22:32)
[2018-12-02] MEDS ORDERED: Acetaminophen 325 MG TAB ONE (22:32)
[2018-12-03] MEDS ORDERED: Ondansetron ODT 4 MG TAB SL PRN (00:52)
[2018-12-03] MEDS ORDERED: Acetaminophen 325 MG TAB PO PRN (00:52)
[2018-12-03] MEDS ORDERED: Sodium Chloride 0.9% 1,000 ML IV SCH (00:52)
[2018-12-03] MEDS ORDERED: HYDROcodone/Acetaminophen 5/325 mg Tablet PO PRN ×2 (00:52)
[2018-12-03] MEDS ORDERED: Ondansetron PF 4 MG/2 ML Vial IVP PRN (00:52)
[2018-12-03 00:55] VITALS: BMI 40.4
[2018-12-03 01:09] LABS: Troponin I Less than 0.010 ng/mL (< 0.028)
[2018-12-03 04:17] LABS: Troponin I 0.016 ng/mL (< 0.028)
[2018-12-03] MEDS ORDERED: Dextrose 5% in Water 1,000 ML IV PRN ×2 (06:56→08:00)
[2018-12-03] MEDS ORDERED: Insulin Regular 300 UNITS/3 ML VIAL SC PRN (06:56)
[2018-12-03] MEDS ORDERED: Dextrose 50% Abboject 50 ML SYRINGE IVP PRN (06:56)
[2018-12-03] MEDS ORDERED: Nitroglycerin 0.4 MG TAB (25 Tab Bottle) PO PRN (08:00)
[2018-12-03] MEDS ORDERED: Dextrose 50% Abboject 50 ML SYRINGE SLOW IVP PRN (08:00)
--- NOTE | 2018-12-03 08:36 | HP ---
PRIMARY CARE PROVIDER: [employer]. HISTORY OF PRESENT ILLNESS: The patient presents with three to four days of progressive pressure-like chest pain with activity, lasting 20 to 30 minutes, goes away with rest and recurs when up and about. She says she has had some nausea with present illness. She has had some sweats with the present illness and some shortness of breath. She was seen in the emergency room, evaluated[facility] PAST MEDICAL HISTORY: Pertinent for coronary artery disease, diabetes mellitus type 2, hypertension, elevated cholesterol, and congestive heart failure. CURRENT MEDICATIONS: 1. Plavix 75 mg a day. 2. Celexa 10 mg a day. 3. Levemir 30 units subcu twice a day. 4. Lasix 40 mg a day. 5. Ranexa 500 mg twice a day. 6. Aspirin 81 mg a day. 7. Janumet twice a day. 8. Nexium 40 mg a day. 9. Metoprolol 25 mg twice a day. 10. Gabapentin 300 mg three times a day. ALLERGIES: TO PHENERGAN. SHE SAYS IT CAUSES HER TO TWITCH AND JERK. PAST SURGICAL HISTORY: Coronary artery bypass graft two years ago, cholecystectomy, and x3. FAMILY HISTORY: Negative for coronary artery disease. Mother and father had diabetes. She has siblings with diabetes. SOCIAL HISTORY: Single. No tobacco. No alcohol. Full code status. Daughter, La Nena, is next of kin. REVIEW OF SYSTEMS: GENERAL: No fainting. No headache. EYES: Some blurred vision. No double vision, flashing lights. EAR, NOSE, AND THROAT: No ear pain or drainage. No nasal bleeding. No trouble swallowing. CARDIAC: See present illness. No orthopnea or paroxysmal nocturnal dyspnea. RESPIRATION: Minimal cough. No wheezing or asthma. GASTROINTESTINAL: She has this vague lower abdominal pain for about three months. No problems with bowel movements. No blood in her stools. No vomiting. GENITOURINARY: No hematuria or dysuria. She does have heavy periods. Sometimes, she has bleeding between periods. MUSCULOSKELETAL: She has some occasional left leg pain and numbness. Occasional swelling. NEUROLOGICAL: No strokes, seizures, or focal weakness. PSYCHIATRIC: History of some depression, on Celexa. SKIN: No bruising, bleeding, or rash. HEME/LYMPH: No tender or swollen lymph nodes in the axilla, inguinal, or cervical area. PHYSICAL EXAMINATION: VITAL SIGNS: Blood pressure 129/60, pulse 78, respirations 18, and room air sat 100, temperature 97.6. HEAD, EYES, EARS, NOSE, AND THROAT: Revealed pupils equal, round, react to light. Extraocular movements are intact. Sclerae are white. Tympanic membranes clear. Nose is clear. Mouth is clear. NECK: Supple without jugular venous distention, adenopathy, or thyromegaly. CHEST: Clear to auscultation and percussion. HEART: Had a regular rate and rhythm. First and second heart sounds are clear. There are no appreciated murmurs or gallops. ABDOMEN: Soft. Bowel sounds are normal. There is no hepatosplenomegaly. No mass. No rebound. No bruits. EXTREMITIES: Reveal no cyanosis, clubbing, or edema. PULSES: Carotid, radial, femoral, and dorsalis pedis pulses intact. SKIN: Warm and dry without bruises or rash. HEME/LYMPH: No tender or swollen lymph nodes in axilla, inguinal, or cervical area. NEUROLOGICAL: Cranial nerves 2 through 12 are intact. Moves all extremities. Deep tendon reflexes symmetric. CARDIOVASCULAR STUDIES: EKG; regular sinus rhythm. Left ventricular hypertrophy with repolarization abnormality, reviewed by me. IMAGING STUDIES: Chest x-ray; no cardiomegaly, CHF, or infiltrate. Postop changes, reviewed by me. LABORATORY STUDIES: Comprehensive metabolic profile; blood sugar was 438. Sodium was 133, otherwise unremarkable. Cardiac enzymes are normal. BNP is minimally elevated at 150. CBC showed a white count of 10.9, hemoglobin 10.6. Microcytic indices suggestive of iron deficiency. ADMITTING DIAGNOSES: 1. Chest pain. 2. Coronary artery disease. 3. Diabetes mellitus type 2. 4. Hypertension. 5. Elevated cholesterol. 6. Iron deficiency anemia. 7. Menometrorrhagia. PLAN: 1. Cardiac enzymes are normal. We will continue aspirin and Plavix, and do a cardiac stress test. 2. Accu-Cheks and sliding scale will be followed. The metformin will be held because of possible need for cardiac cath. Iron binding capacity will be obtained. She will probably eventually need a Gynecology consult. She will need iron replacement. Job ID: [id number]
[2018-12-03 08:38] LABS: Iron 17 ug/dL (50-170); Iron Binding Capacity, Total 486 mcg/dL (265-497)
[2018-12-03] MEDS: Aspirin 325 mg Enteric Coated Tablet PO SCH (08:50)
[2018-12-03] MEDS: Furosemide 40 MG TAB PO SCH (08:50)
[2018-12-03] MEDS: Gabapentin 300 MG CAP PO SCH ×3 (08:50→21:09)
[2018-12-03] MEDS: Metoprolol Tartrate 25 MG TAB PO SCH ×2 (08:51→21:09)
[2018-12-03] MEDS: Insulin Glargine 30 UNITS in Pre-Filled Syringe 1 EACH SC SCH ×3 (08:51→21:09)
[2018-12-03] MEDS: Clopidogrel Bisulfate 75 MG TAB PO SCH (08:51)
[2018-12-03] MEDS ORDERED: Non-Formulary Item 1 EACH (Esomeprazole Magnesium [Nexium] 40 MG) PO SCH (09:00)
[2018-12-03] MEDS ORDERED: Non-Formulary Item 1 EACH (Insulin Detemir [Levemir Flextouch] 30 UNIT) SQ SCH (09:00)
[2018-12-03] MEDS ORDERED: Aspirin Chewable 81 MG TAB PO SCH (09:00)
[2018-12-03] MEDS: HumaLOG 300 UNITS/3 ML VIAL SC PRN ×2 (13:24→16:47)
--- NOTE | 2018-12-03 16:10 | PDOC.EVN ---
Event Note - Event Note Event Note: 2 day stress test
[2018-12-03] MEDS ORDERED: ADENOSINE 60 MG/20 ML VIAL ONE (16:53)
[2018-12-03] MEDS ORDERED: Prevnar 13-Val Conj/PF 0.5 ML SYRINGE IM ONE (21:00)
[2018-12-03] MEDS ORDERED: Citalopram 10 MG TAB PO SCH (21:00)
[2018-12-04] MEDS: HumaLOG 300 UNITS/3 ML VIAL SC PRN ×3 (05:58→17:27)
--- NOTE | 2018-12-04 08:22 | NM ---
CARDIAC SPECT: CLINICAL HISTORY: 53-year-old female with chest pain, coronary artery disease, CABG, CHF, hypertension, diabetes, and d yslipidemia. TECHNIQUE: A myocardial perfusion scan was performed using the single isotope two day protocol with 32 mCi techn etium-99m sestamibi injected intravenously for both stress and rest images. Pharmacologic stress with Adenosine was monitored and interpreted by Dr. Monteiro. FINDINGS: The stress images demonstrate decreased tracer localization in the distal anterior and anterolateral castano. The stress images demonstrate complete reversibility in the distal anterior wall and partial r eversibility in the anterolateral wall. GATED SPECT LVEF: 45%. WALL MOTION EXAM: Mild global hypokinesis. IMPRESSION: 1. Completely reversible distal anterior wall ischemia. 2. Partially reversible anterolateral wall ischemia. POS: [facility]
[2018-12-04] MEDS: Clopidogrel Bisulfate 75 MG TAB PO SCH (08:24)
[2018-12-04] MEDS: Aspirin 325 mg Enteric Coated Tablet PO SCH (08:24)
[2018-12-04] MEDS: Furosemide 40 MG TAB PO SCH (08:24)
[2018-12-04] MEDS: Metoprolol Tartrate 25 MG TAB PO SCH (08:25)
[2018-12-04] MEDS: Gabapentin 300 MG CAP PO SCH ×2 (08:25→15:59)
[2018-12-04] MEDS: Insulin Glargine 30 UNITS in Pre-Filled Syringe 1 EACH SC SCH (08:26)
--- NOTE | 2018-12-04 09:43 | PDOC.PN ---
- Subjective Encounter Start Date: 12/04/18 Encounter Start Time: 09:41 Subjective: no chest pain - Objective MAR Reviewed: Yes Vital Signs & Weight: Vital Signs (12 hours) Pulse Resp BP Pulse Ox 12/04/18 04:05 76 18 125/58 L 100 Weight Admit Weight 207 lb 4.8 oz Weight 207 lb 4.8 oz I&O: 12/03/18 12/04/18 12/05/18 06:59 06:59 06:59 Intake Total 506 650 Output Total 250 2800 Balance 256 -2150 Result Diagrams: 12/02/18 21:08 12/02/18 21:08 Additional Labs: Accuchecks 12/04/18 12/03/18 12/03/18 05:58 20:32 16:36 POC Glucose 279 H 264 H 336 H 12/03/18 12/03/18 13:21 10:33 POC Glucose 454 H 301 H Phys Exam - Physical Examination Neck: no JVD Respiratory: clear to auscultation bilateral Cardiovascular: RRR, no significant murmur Gastrointestinal: soft, positive bowel sounds Musculoskeletal: no edema Dx/Plan (1) Chest pain Code(s): R07.9 - CHEST PAIN, UNSPECIFIED Status: Acute Qualifiers: Chest pain type: chest pain due to myocardial ischemia Ischemic chest pain type: unstable angina pectoris Qualified Code(s): I20.0 - Unstable angina (2) CAD (coronary artery disease) Code(s): I25.10 - ATHSCL HEART DISEASE OF [place] CORONARY ARTERY W/O ANG PCTRS Status: Acute Qualifiers: Coronary Disease-Associated Artery/Lesion type: [place] artery [place] vs. transplanted heart: lummi heart Associated angina: with unstable angina Qualified Code(s): I25.110 - Atherosclerotic heart disease of [place] coronary artery with unstable angina pectoris (3) DM type 2 (diabetes mellitus, type 2) Status: Acute Qualifiers: Diabetes mellitus residential insulin use: with buttermilk drier operator use Diabetes mellitus complication status: without complication Qualified Code(s): E11.9 - Type 2 diabetes mellitus without complications; Z79.4 - group home (current) use of insulin (4) HTN (hypertension) Code(s): I10 - ESSENTIAL (PRIMARY) HYPERTENSION Status: Chronic Qualifiers: Hypertension type: essential hypertension Qualified Code(s): I10 - Essential (primary) hypertension (5) LUBA (iron deficiency anemia) Code(s): D50.9 - IRON DEFICIENCY ANEMIA, UNSPECIFIED Status: Acute Qualifiers: Iron deficiency anemia type: chronic blood loss Qualified Code(s): D50.0 - Iron deficiency anemia secondary to blood loss (chronic) - Plan pos stress test-cardiology consult -: cont asa, plavix -: cont accu/ss/insulin LA * .
[2018-12-04 15:50] VITALS: TEMP 97.8
--- NOTE | 2018-12-04 16:48 | CON ---
DATE OF CONSULTATION: HISTORY OF PRESENT ILLNESS: The patient is an unfortunate 53-year-old woman with severe coronary artery disease, who presents with recurrent chest discomfort. The patient in 2016 underwent a cardiac catheterization and was found to have severe 3-vessel coronary artery disease. She subsequently underwent coronary artery bypass graft surgery x3. She had a saphenous vein graft to the LAD, obtuse marginal branch, and right coronary artery. The patient re-presented with chest discomfort to the [facility] in March 2017. She underwent a repeat cardiac catheterization. She was found to have normal left ventricular ejection fraction of 50% to 55%. The patient was found to have 3 coronary artery bypass grafts that were completely occluded. The left main had 100% stenosis with the LAD had 100 % with [id number] collaterals. The left circumflex had 100% occlusion, which fills via [id number] collaterals. The right coronary artery had a 30% lesion. The patient was placed on medical therapy. She was admitted a month earlier this year with unstable angina. The patient presents once again with increasing chest discomfort. She states she has taken multiple nitroglycerin tablets per day. The chest pain did not resolve with nitroglycerin. She came to the hospital for further evaluation. The patient denies having any present chest discomfort. PAST MEDICAL HISTORY: 1. Coronary artery disease. 2. Hypertension. 3. Dyslipidemia. 4. Depression. PAST SURGICAL HISTORY: Coronary artery bypass surgery, cholecystectomy, and C- section. SOCIAL HISTORY: Nonsmoker. FAMILY HISTORY: No strong family history of heart disease. ALLERGIES: PHENERGAN. MEDICATIONS: 1. Plavix 75 daily. 2. Aspirin 81 daily. 3. Lasix 40 daily. 4. Celexa 10 daily. 5. Nexium 40 daily. 6. Metoprolol 25 daily. 7. Gabapentin 300 t.i.d. REVIEW OF SYSTEMS: Ten-point systems, otherwise unremarkable. PHYSICAL EXAMINATION: GENERAL: This is an obese woman, in no acute distress. VITAL SIGNS: Blood pressure 117/56. NECK: No jugular venous distention. LUNGS: Clear to auscultation. HEART: Regular rate and rhythm. Normal S1, S2. No murmurs. ABDOMEN: Nondistended. EXTREMITIES: Show no edema. VASCULAR: Radial pulses are 2+. LABORATORY RESULTS: Her sodium was 133, potassium 4.0, chloride 98, bicarbonate 22, BUN 9, creatinine 0.72, and glucose 438. Troponin less than 0.01. IMPRESSION: 1. Unstable angina. 2. History of coronary artery bypass surgery with 3 occluded grafts. 3. Hypertension. 4. Diabetes mellitus. This patient presents with a recurrent chest discomfort. Her cardiac enzymes revealed no evidence of myocardial infarction. From a Cardiac standpoint, we would recommend adding an Imdur. The patient should follow up with her vice president quality assurance at [facility]. PLAN: 1. Imdur. 2. Continue medical therapy. 3. Close outpatient followup. Job ID: [id number] JHONATAN
[2018-12-04 19:30] VITALS: BP 145/68
--- NOTE | 2018-12-04 19:42 | DIS ---
DATE OF ADMISSION: 12/03/2018 DATE OF DISCHARGE: 12/04/2018 PRIMARY CARE PROVIDER: Kyle Tian. DISPOSITION: Discharged home. FINAL DIAGNOSES: 1. Angina pectoris. 2. Coronary artery disease. 3. Diabetes mellitus type 2. 4. Hypertension. 5. Anemia, iron deficiency. DISCHARGE MEDICATIONS: 1. Imdur 30 mg p.o. q.a.m. 2. Nitroglycerin 0.4 mg one p.o. q.5 minutes p.r.n. chest pain maximum of 3. 3. Plavix 75 mg a day. 4. Celexa 10 mg a day. 5. Levemir 30 units subcu b.i.d. 6. Lasix 40 mg a day. 7. Ranexa 500 mg b.i.d. 8. Aspirin 81 mg a day. 9. Sitagliptin/metformin one twice a day. 10. Nexium 40 mg a day. 11. Metoprolol 25 mg twice a day. 12. Gabapentin 300 mg three times a day. 13. Ferrous sulfate 325 mg p.o. b.i.d. ALLERGIES: PHENERGAN CAUSES HER TO TWITCH. DIET: Diabetic. PENDING AT TIME OF DISCHARGE: Nothing. CODE STATUS: Full. CONSULTATIONS: Graham Mondragon MD, Cardiology. HOSPITAL COURSE: The patient admitted with frequent episodes of chest pain. She was seen in the emergency room and [facility]. Her cardiac enzymes were normal. Her CBC showed a mild anemia of 10.6. Iron studies were done, which confirms she was iron deficient. Blood sugars were in the 300 range. Sodium was 135. EKG, regular sinus rhythm with left ventricular hypertrophy and repolarization abnormality. Nuclear medicine cardiac stress test was done, which showed reversible ischemia. Dr. Mondragon was consulted. He obtained data from [facility]. She had a bypass 2 years ago. Apparently, she has had recent studies, found to have 3 of her bypass grafts occluded. Dr. Mondragon recommended addition of Imdur. She could be discharged to be followed up soon with her primary care doctor and Dr. Uribe, Cardiology at [facility]. I have discussed this with the patient, she is desirous of going home. She has had no chest pain since admission. Prescriptions have been written. I told her that Dr. Mondragon has recommended if she has more problems, to go to [facility] that she needs to see Dr. Uribe as soon as she is able to get in. Job ID: [id number]
--- NOTE | 2018-12-07 13:24 | EKG ---
Test Reason : Blood Pressure : / mmHG Vent. Rate : 084 BPM Atrial Rate : 084 BPM P-R Int : 156 ms QRS Dur : 088 ms QT Int : 388 ms P-R-T Axes : 034 -19 138 degrees QTc Int : 458 ms Normal sinus rhythm Left ventricular hypertrophy with repolarization abnormality Nonspecific ST abnormality Abnormal ECG Leftward axis #2 No changes Confirmed by MIGUEL ANGEL KC MD ([id number]), wind farm support specialist FARZANEH BARCLAY ([id number]) on 12/07/2018 1:24:27 PM Referred By: Confirmed By:MIGUEL ANGEL KC MD
--- NOTE | 2018-12-12 14:14 | STRESS ---
Acquisition Time: 2018-12-03 11:39:32 Total Exercise Time: 00:04:00 Test Indications: CHEST PAIN Medications: Protocol: ADENOSINE Max HR: 104 BPM 61% of Pred: 169 BPM Max BP: 132/070 mmHG Max Work Load: 1.0 METS RESTING ECG: NORMAL SINUS RHYTHM AT 80 BPM; LEFT VENTRICULAR HYPERTROPHY WITH REPOLARIZATION ABNORMALITY SYMPTOMS: DYSPNEA NORMAL BP RESPONSE ECTOPY: NONE ECG STRESS: NO SIGNIFICANT CHANGES INTERPRETATION: AWAIT NUCLEAR IMAGES FOR DEFINITIVE DIAGNOSIS Confirmed by KAYLEIGH PEREZ ([id number]), associate entertainment editor JUAN DEL ROSARIO ([id number]) on 12/12/2018 2:14:10 PM Referred By: MD Markel MOSCOSO Confirmed By:KAYLEIGH PEREZ
== END 2018-12-04 19:20 | disposition home or self-care (01) ==
LOC: ERS 20:38 → 2SW 12-03 00:44 → MERGE 12-03 00:44
PROVIDERS: ADMIT Family Medicine; ATTEND Family Medicine
DX: I25.119 Atherosclerotic heart disease of native coronary artery with unspecified angina pectoris (principal); E11.9 Type 2 diabetes mellitus without complications; I11.0 Hypertensive heart disease with heart failure; I50.9 Heart failure, unspecified; D50.9 Iron deficiency anemia, unspecified; E78.00 Pure hypercholesterolemia, unspecified; N92.1 Excessive and frequent menstruation with irregular cycle; F32.9 Major depressive disorder, single episode, unspecified; E66.9 Obesity, unspecified; Z95.1 Presence of aortocoronary bypass graft; Z88.8 Allergy status to other drugs, medicaments and biological substances; Z68.41 Body mass index [BMI] 40.0-44.9, adult; Z79.02 Long term (current) use of antithrombotics/antiplatelets; Z79.4 Long term (current) use of insulin; Z79.82 Long term (current) use of aspirin; Z79.899 Other long term (current) drug therapy
CPT/HCPCS: 36415; 36416; 71045; 78452; 80053; 82010; 82550; 82553; 83540; 83550; 83690; 83880; 84484; 85025; 85060; 93005; 93017; 96360; 96361; A9500; G0378; J0153; J1815

== ENCOUNTER 2019-04-23 02:52 | Observation (INO) | payer SELFPAY ==
[2019-04-23 12:58] VITALS: BP 128/66; TEMP 97.7
[2019-04-23] MEDS ORDERED: Dextrose 5% in Water 1,000 ML IV PRN (13:18)
[2019-04-23] MEDS ORDERED: Dextrose 50% Abboject 50 ML SYRINGE IVP PRN (13:18)
[2019-04-23] MEDS ORDERED: Acetaminophen 325 MG TAB PO PRN (13:21)
[2019-04-23] MEDS ORDERED: Aspirin Chewable 81 MG TAB PO SCH (13:30)
[2019-04-23] MEDS ORDERED: Insulin Regular 300 UNITS/3 ML VIAL SC PRN (13:35)
[2019-04-23] MEDS ORDERED: Sodium Chloride 0.9% 500 ML IVPB SCH (13:45)
[2019-04-23 19:53] LABS: Troponin I Less than 0.010 ng/mL (< 0.028)
[2019-04-23] MEDS ORDERED: Insulin Glargine 20 UNITS in Pre-Filled Syringe 1 EACH SC SCH (21:00)
[2019-04-23] MEDS ORDERED: Famotidine 20 MG TAB PO SCH (21:00)
[2019-04-23] MEDS ORDERED: Atorvastatin Calcium 40 MG TAB PO SCH (21:00)
[2019-04-24] MEDS ORDERED: Enoxaparin Sodium 40 MG/0.4 ML SYRINGE SC SCH (09:00)
[2019-04-24] MEDS ORDERED: Clopidogrel Bisulfate 75 MG TAB PO SCH (09:00)
--- NOTE | 2019-04-25 11:32 | HP ---
CHIEF COMPLAINT: Chest pain. HISTORY OF PRESENT ILLNESS: The patient is a 53-year-old female with a past medical history of CAD, hypertension, diabetes, who presents to the hospital with complaints of chest pain x1 day. The patient states that she was sitting last night at around 8:00 p.m., started having some chest tightness, which did not improve, so she came into the ER for further evaluation. She denies any shortness of breath, any fevers or chills. The patient states that she had a cardiac catheterization about 6 months ago. Her business programmer is Dr. Uribe, and this was at [facility]. The patient states that she has also had a chest pain about a couple of weeks ago; however, it was not as severe in intensity. She describes the pain as a pressure-like sensation. Denies any radiation. PAST MEDICAL HISTORY: Hypertension, diabetes, CAD, obesity, heart failure, hyperlipidemia. PAST SURGICAL HISTORY: She has had a quadruple bypass in 2017, , and cholecystectomy. SOCIAL HISTORY: She lives at home. Is a former smoker, smoked cigarettes, however, currently does not smoke. Denies any alcohol use or drug use. She is a full code. ALLERGIES: SHE IS ALLERGIC TO PHENERGAN. MEDICATIONS: 1. Janumet mg twice a day. 2. Gabapentin 300 mg t.i.d. 3. Levemir 20 units b.i.d. 4. Furosemide 40 mg daily. 5. Plavix 75 mg daily. 6. Aspirin 81 mg daily. 7. Isosorbide unknown strength. 8. Atorvastatin 80 mg daily. REVIEW OF SYSTEMS: All negative except for the ones mentioned above in the HPI. PHYSICAL EXAMINATION: VITAL SIGNS: Temperature of 98.8, blood pressure 115/60, , 99% on room air. GENERAL: She is awake, alert, and oriented x3. Does not appear in distress. HEENT: Normocephalic, atraumatic. No lymphadenopathy noted. Pupils equal and reactive to light. CV: S1 and S2 present. No murmurs, rubs, or gallops. She does have a mid substernal scar. ABDOMEN: Obese. Bowel sounds are present x2. Pain upon palpation to epigastric area. LUNGS: Clear to auscultation. No rhonchi or wheezes noted. EXTREMITIES: No edema. Pedal pulses are present x2. NEUROVASCULAR: There were no focal deficits noted. SKIN: No cuts, lesions, or bruises noted. LABORATORY DATA: Our computer is currently not working. This is through the previous ER at an outside facility. The patient's sodium was 134, potassium of 3.8, BUN of 11, creatinine of 1.05, magnesium was 1.6. Troponin x1 was negative. Her glucose was 458. Her WBCs of 11.5, hemoglobin of 11.4, hematocrit of 39.9, and platelets of 532. She did have a chest x-ray; however, I do not have the results of that. Her EKG, that was done, indicated no ST-elevation or depression. She did have some T-wave inversions in aVL and lead I. ASSESSMENT AND PLAN: The patient is a 53-year-old female who presents to the hospital with complaints of chest pain. 1. Chest pain. The patient states that she recently had a cardiac catheterization about 6 months ago. We will go ahead and get records from [facility]. If she recently had a cardiac cath, I will not go ahead and pursue a stress test. We will trend her troponins x3. The patient stated that after her cardiac cath, she was told that there was no intervention to be done, she needs to be managed medically. We will continue her home medications. May consider consulting Cardiology for further workup if needed. 2. Diabetes, uncontrolled. We will start the patient on some IV hydration and also put her on her insulin. She stated that she ran out of her needles, so she has not been taking insulin for the past few days. 3. Hypertension. Again, we will continue her home medications. 4. Hypercholesterolemia. We will continue the statin. 5. Deep vein thrombosis prophylaxis. We will put patient on SCDs. 6. Obesity. The patient has been educated on diet, exercise, and weight loss. Job ID: [id number]
== END 2019-04-23 14:54 | disposition home or self-care (01) ==
LOC: ERS 02:52 → 2SW 06:09
PROVIDERS: ADMIT Internal Medicine; ATTEND Internal Medicine
DX: R07.89 Other chest pain (principal); I25.10 Atherosclerotic heart disease of native coronary artery without angina pectoris; I11.0 Hypertensive heart disease with heart failure; I50.9 Heart failure, unspecified; E11.9 Type 2 diabetes mellitus without complications; E78.5 Hyperlipidemia, unspecified; E78.00 Pure hypercholesterolemia, unspecified; E66.9 Obesity, unspecified; Z87.891 Personal history of nicotine dependence; Z79.02 Long term (current) use of antithrombotics/antiplatelets; Z79.4 Long term (current) use of insulin; Z79.82 Long term (current) use of aspirin; Z79.899 Other long term (current) drug therapy; Z88.8 Allergy status to other drugs, medicaments and biological substances; Z95.1 Presence of aortocoronary bypass graft
CPT/HCPCS: 36416; 84484; 93005; 99285; G0378

== ENCOUNTER 2023-07-01 04:26 | Observation (INO) | payer SELFPAY ==
[2023-07-01] MEDS ORDERED: Acetaminophen 500 MG TAB ONE (07:28)
[2023-07-01 08:13] LABS: #Basophils 0.1 thou/uL (0.0-0.2); #Eosinphils 0.1 thou/uL (0.0-0.7); #Monocytes 0.4 thou/uL (0.11-0.59); #Neutrophils 7.8 thou/uL (1.40-6.50); %Basophils 0.9 % (0.0-1.0); %Eosinophils 0.8 % (0.0-10.0); %Lymphocytes 18.7 % (21.0-51.0); %Monocytes 3.9 % (0.0-10.0); %Neutrophils 75.4 % (42.0-75.0); Hematocrit 39.5 % (36.0-47.0); Hemoglobin 13.2 g/dL (12.0-16.0); Mean Corpuscular HGB CONC 33.4 g/dL (32.0-36.0); Mean Corpuscular Hemoglobin 27.3 pg (27.0-31.0); Mean Corpuscular Volume 81.8 fl (78.0-98.0); Mean Platelet Volume 10.2 fL (7.4-10.4); Platelet Count 338 10x3/uL (130-400); RBC Distribution Width 13.4 % (11.5-14.5); Red Blood Cell (RBC) Count 4.83 mill/uL (4.20-5.40); White Blood Cell (WBC) Count 10.4 10x3/uL (4.8-10.8)
[2023-07-01] MEDS ORDERED: Nitroglycerin 0.4 MG TAB (25 Tab Bottle) SL PRN (08:47)
[2023-07-01] MEDS ORDERED: Dextrose 50% Abboject 50 ML SYRINGE SLOW IVP PRN (08:49)
[2023-07-01] MEDS ORDERED: Dextrose 5% in Water 1,000 ML IV PRN (08:49)
[2023-07-01] MEDS ORDERED: HumaLOG 300 UNITS/3 ML VIAL SC PRN (08:49)
[2023-07-01] MEDS ORDERED: Glucagon 1 MG/ML KIT IM PRN (08:49)
[2023-07-01 09:07] LABS: ALT (SGPT) 23 U/L (8-55); AST (SGOT) 16 U/L (5-34); Albumin 3.6 g/dL (3.5-5.0); Alkaline Phosphatase 91 U/L (40-110); Anion Gap 12 mmol/L (10-20); BUN (Urea Nitrogen) 14 mg/dL (9.8-20.1); Bilirubin, Total 0.3 mg/dL (0.2-1.2); Calc. Creatinine Clearance 0 mL/min (70-130); Calcium 9.1 mg/dL (7.8-10.44); Carbon Dioxide 24 mmol/L (22-29); Chloride 105 mmol/L (98-107); Estimated GFR 88; Globulin 3.1 g/dL (2.4-3.5); Glucose 170 mg/dL (70-105); Lipase 20 U/L (8-78); Potassium 3.8 mmol/L (3.5-5.1); Protein, Total 6.7 g/dL (6.0-8.3); Sodium 137 mmol/L (136-145)
[2023-07-01 09:09] LABS: Troponin I 0.111 ng/mL (< 0.028)
[2023-07-01 09:50] LABS: Anion Gap 9 mmol/L (10-20); BUN (Urea Nitrogen) 16 mg/dL (9.8-20.1); Calc. Creatinine Clearance 0 mL/min (70-130); Calcium 9.1 mg/dL (7.8-10.44); Carbon Dioxide 28 mmol/L (22-29); Chloride 104 mmol/L (98-107); Estimated GFR 82; Glucose 184 mg/dL (70-105); Potassium 3.9 mmol/L (3.5-5.1); Sodium 137 mmol/L (136-145)
[2023-07-01] MEDS: Metoprolol Tartrate 25 MG TAB PO SCH (11:22)
[2023-07-01 12:15] LABS: Troponin I 0.108 ng/mL (< 0.028)
[2023-07-01 18:37] VITALS: BMI 38.4
[2023-07-01] MEDS ORDERED: Atorvastatin Calcium 40 MG TAB PO SCH (21:00)
[2023-07-01] MEDS: Ranolazine 500 MG ER.TAB PO SCH (21:00)
[2023-07-01] MEDS: Rosuvastatin 10 MG TAB PO SCH (21:00)
[2023-07-02 04:49] LABS: #Basophils 0.1 thou/uL (0.0-0.2); #Eosinphils 0.1 thou/uL (0.0-0.7); #Monocytes 0.5 thou/uL (0.11-0.59); #Neutrophils 5.9 thou/uL (1.40-6.50); %Basophils 1.1 % (0.0-1.0); %Eosinophils 1.5 % (0.0-10.0); %Lymphocytes 24.9 % (21.0-51.0); %Monocytes 5.3 % (0.0-10.0); %Neutrophils 66.9 % (42.0-75.0); Hematocrit 38.8 % (36.0-47.0); Hemoglobin 13.2 g/dL (12.0-16.0); Mean Corpuscular Hemoglobin 27.5 pg (27.0-31.0); Mean Corpuscular Volume 80.8 fl (78.0-98.0); Mean Platelet Volume 10.1 fL (7.4-10.4); Platelet Count 345 10x3/uL (130-400); RBC Distribution Width 13.3 % (11.5-14.5); White Blood Cell (WBC) Count 8.8 10x3/uL (4.8-10.8)
[2023-07-02 07:46] VITALS: TEMP 98.1
[2023-07-02] MEDS: Clopidogrel Bisulfate 75 MG TAB PO SCH (08:47)
[2023-07-02] MEDS: Aspirin 81 mg Enteric Coated Tablet PO SCH (08:47)
[2023-07-02] MEDS: FLU VACC QS2023-24(6MOS UP)/PF 60 MCG/0.5 ML SYRINGE IM ONE (08:47)
[2023-07-02] MEDS ORDERED: Aspirin 325 MG TAB PO SCH (09:00)
[2023-07-02 11:40] VITALS: BP 152/67
[2023-07-02] MEDS ORDERED: Rosuvastatin 20 MG TAB PO SCH (21:00)
[2023-07-03] MEDS ORDERED: Isosorbide Mononitrate 30 MG ER.TAB PO SCH (09:00)
== END 2023-07-02 11:40 | disposition home or self-care (01) ==
LOC: ERS 04:26 → ERHOLD 08:20 → 2NO 18:54
PROVIDERS: ADMIT Internal Medicine; ATTEND Internal Medicine
DX: R07.9 Chest pain, unspecified (principal); I25.10 Atherosclerotic heart disease of native coronary artery without angina pectoris; I10 Essential (primary) hypertension; I07.1 Rheumatic tricuspid insufficiency; E11.9 Type 2 diabetes mellitus without complications; E78.5 Hyperlipidemia, unspecified; F41.9 Anxiety disorder, unspecified; F32.A Depression, unspecified; Z95.1 Presence of aortocoronary bypass graft; Z90.49 Acquired absence of other specified parts of digestive tract; Z88.8 Allergy status to other drugs, medicaments and biological substances; Z79.82 Long term (current) use of aspirin; Z79.899 Other long term (current) drug therapy; Z79.84 Long term (current) use of oral hypoglycemic drugs; Z87.891 Personal history of nicotine dependence; Z79.4 Long term (current) use of insulin
CPT/HCPCS: 36415; 36416; 71045; 80053; 83690; 83880; 85025; 93005; 93306; 94760; G0378